=== PATIENT | male | born 2000 | race Caucasian/White ===

== ENCOUNTER 2021-11-02 17:00 | Emergency (ER) | payer BC, OTHER ==
[2021-11-02] MEDS ORDERED: Ketorolac Tromethamine 30 MG/ML VIAL ONE (17:42)
[2021-11-02] MEDS ORDERED: Acetaminophen 500 MG TAB ONE (17:42)
== END 2021-11-02 19:11 | disposition home or self-care (01) ==
LOC: CSHERS 17:00
DX: T20.22XA Burn of second degree of lip(s), initial encounter (principal); T20.26XA Burn of second degree of forehead and cheek, initial encounter; T21.11XA Burn of first degree of chest wall, initial encounter; T31.0 Burns involving less than 10% of body surface; I10 Essential (primary) hypertension; X08.8XXA Exposure to other specified smoke, fire and flames, initial encounter
CPT/HCPCS: 71045; 96372; J1885